=== PATIENT | male | born 1955 | race Caucasian/White ===

== ENCOUNTER → 2019-08-22 09:45 | Outpatient (CLI) | payer BC, SELFPAY ==
--- NOTE | ~2019-08-22 | CT_ITS ---
EXAMINATION: CT chest wo con DATE: 08/22/2019 10:08 INDICATION: Lung cancer screening. Personal history of tobacco dependence. TECHNIQUE: Computed tomography (CT) of the chest was performed without intravenous contrast. The dose -length product was 364.86 mGy-cm. Automated exposure control and iterative reconstruction technique were employed. COMPARISON: CT dated 02/20/2017 FINDINGS: Heart size normal. There is atherosclerosis of the aorta and coronary arteries. Heart size is normal. No significant pleural or pericardial effusion. There is a hypodense right renal mass lauren uring 2.8 cm, likely a cyst. No significant pleural or pericardial effusion. No thoracic lymphadenopa thy. Mild emphysema. There are calcified mediastinal and right hilar lymph nodes as well as parenchym al nodules, consistent with chronic granulomatous disease. No endobronchial lesions. No pneumothorax. No thoracic spondylosis. No osteolytic or osteoblastic lesions are seen. IMPRESSION: 1. Lung-RADS category 1: Negative. Continue annual screening with noncontrast low-dose chest CT in 12 months. Reviewed, dictated and finalized at location A. DEVELOPER IMPRESSION: 1. Lung-RADS category 1: Negative. Continue annual screening with noncontrast l ow-dose chest CT in 12 months.
== END ==
PROVIDERS: PCP Family Medicine; Visit Provider Physician Assistant
DX: Z09 Encounter for follow-up examination after completed treatment for conditions other than malignant neoplasm (principal); Z12.2 Encounter for screening for malignant neoplasm of respiratory organs; Z87.891 Personal history of nicotine dependence
CPT/HCPCS: 71250

== ENCOUNTER → 2020-10-26 09:05 | Outpatient (CLI) | payer BC, SELFPAY ==
--- NOTE | ~2020-10-26 | CT_ITS ---
EXAMINATION: CT lung screening DATE: 10/26/2020 09:23 INDICATION: Z87.891 - Personal history of nicotine dependence TECHNIQUE: Computed tomography (CT) of the chest was performed without intravenous contrast. Addition al 3D reconstructions utilizing coronal maximum intensity projection (MIP) were performed. Automated exposure control and iterative reconstruction technique were employed. The dose-length product was 26 5.82 mGy-cm. COMPARISON: 08/22/2019 FINDINGS: Calcite nodules in the right middle lobe along with calcified right hilar and mediastinal lymph nodes consistent with old granulomatous disease. No pneumonia or other suspicious pulmonary nodules, pulmo nary edema or pleural effusion. Heart size is normal. Atherosclerotic coronary artery calcifications. No pericardial effusion. Thoracic aorta is normal in caliber. No pathologically enlarged thoracic ly mphadenopathy. Calcified gallstones at the dependent neck of the gallbladder. Moderate thoracic spond ylosis with bridging osteophytes at multiple levels consistent with diffuse idiopathic skeletal hyper ostosis (DISH). IMPRESSION: 1. Lung-RADS category 1: Negative. Continue annual screening with noncontrast low-dose chest CT in 12 months. Reviewed, dictated and finalized at location B. IMPRESSION: 1. Lung-RADS category 1: Negative. Continue annual screening with noncontrast l ow-dose chest CT in 12 months.
== END ==
PROVIDERS: PCP Family Medicine; Visit Provider Physician Assistant
DX: Z12.2 Encounter for screening for malignant neoplasm of respiratory organs (principal); Z87.891 Personal history of nicotine dependence
CPT/HCPCS: 71271

== ENCOUNTER 2022-03-31 09:45 | Outpatient (CLI) | payer BC, SELFPAY ==
--- NOTE | 2022-03-31 10:13 | EST_ITS ---
Patient Info Name: Poncho Marcum Age: 66 years : 1955 Gender: Male Ht: 72 in Wt: 280 lbs BSA: 2.59 m2 Exam Date: 03/31/2022 10:25 AM Exam Location: [facility] Patient Status: Outpatient Admit Date: 03/31/2022 Staff Ordering Physician: Vignesh Rainey PA-C Motorcoach Driver: Logan Mosher RDCS, RT Attending Provider: Vignesh Rainey PA-C Exam Type: CA stress echo Study Info Indications R07.9 - Chest pain, unspecified Treadmill exercise stress echocardiogram is performed. Summary 1. 1. Negative Nash exercise stress test for ischemic ST changes by ECG criteria. 2. 2. Mildly reduced functional capacity, achieving 9 METs of workload. 3. 3. Appropriate HR response to exercise. 4. 4. Appropriate HR recovery at 1 minute post exercise. 5. 5. Negative stress echocardiogram for ischemia by wall motion analysis. 6. 6. Patient informed of the above results. Stress Echo Findings Left Ventricle Appropriate increase in LV endocardial thickening with systole. Appropriate augmentation of contractility with systole. No wall motion abnormality. Left Ventricle Normal LV systolic function, no wall motion abnormality. Protocol: [facility] Stress ECG Details Stage: REST Duration (min): 2 min : 12 sec Speed (mph): 0.0 Grade (%): 0 HR (bpm): 67 SBP (mmHg): 117 DBP (mmHg): 78 METS: --- Stage: REST Duration (min): 23 min : 38 sec Speed (mph): 0.0 Grade (%): 0 HR (bpm): 70 SBP (mmHg): 117 DBP (mmHg): 78 METS: --- Stage: STAGE 1 Duration (min): 1 min : 0 sec Speed (mph): 1.7 Grade (%): 10 HR (bpm): 94 SBP (mmHg): 117 DBP (mmHg): 78 METS: --- Stage: STAGE 1 Duration (min): 2 min : 0 sec Speed (mph): 1.7 Grade (%): 10 HR (bpm): 105 SBP (mmHg): 117 DBP (mmHg): 78 METS: --- Stage: STAGE 1 Duration (min): 3 min : 0 sec Speed (mph): 1.7 Grade (%): 10 HR (bpm): 110 SBP (mmHg): 149 DBP (mmHg): 74 METS: --- Stage: STAGE 2 Duration (min): 1 min : 0 sec Speed (mph): 2.5 Grade (%): 12 HR (bpm): 118 SBP (mmHg): 149 DBP (mmHg): 74 METS: --- Stage: STAGE 2 Duration (min): 2 min : 0 sec Speed (mph): 2.5 Grade (%): 12 HR (bpm): 126 SBP (mmHg): 143 DBP (mmHg): 86 METS: --- Stage: STAGE 2 Duration (min): 3 min : 0 sec Speed (mph): 2.5 Grade (%): 12 HR (bpm): 134 SBP (mmHg): 143 DBP (mmHg): 86 METS: --- Stage: STAGE 3 Duration (min): 1 min : 0 sec Speed (mph): 3.4 Grade (%): 14 HR (bpm): 145 SBP (mmHg): 184 DBP (mmHg): 83 METS: --- Stage: STAGE 3 Duration (min): 1 min : 11 sec Speed (mph): 0.0 Grade (%): 0 HR (bpm): 147 SBP (mmHg): 184 DBP (mmHg): 83 METS: --- Stage: RECOVERY Duration (min): 0 min : 48 sec Speed (mph): 0.0 Grade (%): 0 HR (bpm): 135 SBP (mmHg): 184 DBP (mmHg): 83 METS: --- Stage
== END 2022-03-31 09:46 | disposition home or self-care (01) ==
PROVIDERS: PCP Emergency Medicine; Visit Provider Physician Assistant
DX: R07.89 Other chest pain (principal); Z51.81 Encounter for therapeutic drug level monitoring; Z79.84 Long term (current) use of oral hypoglycemic drugs
CPT/HCPCS: 93351

== ENCOUNTER 2022-07-22 09:06 | Outpatient (CLI) | payer MEDICARE, SELFPAY ==
--- NOTE | ~2022-07-22 | US_ITS ---
EXAMINATION: US aorta [facility] DATE: 07/22/2022 09:51 INDICATION: Abdominal aortic aneurysm screening, tobacco use, hypertension, diabetes TECHNIQUE: Grayscale, color Doppler, and pulsed Doppler images of the aorta and common iliac arteries were obtained. COMPARISON: None. FINDINGS: Maximum vascular dimensions are as follows: Proximal aorta: 2.8 cm Mid aorta: 3.1 cm Distal aorta: 2.5 cm Right common iliac artery: 1.4 cm Left common iliac artery: 1.4 cm There is a fusiform infrarenal abdominal aortic aneurysm measuring up to 3.1 cm. IMPRESSION: 1. Fusiform infrarenal abdominal aortic aneurysm measuring up to 3.1 cm. Reviewed, dictated and finalized at location B. PULLING MACHINE TENDER
== END 2022-07-22 09:07 | disposition home or self-care (01) ==
PROVIDERS: PCP Emergency Medicine; Visit Provider Emergency Medicine
DX: F17.210 Nicotine dependence, cigarettes, uncomplicated (principal); I71.43 Infrarenal abdominal aortic aneurysm, without rupture
CPT/HCPCS: 76706

== ENCOUNTER 2023-07-14 07:23 | Outpatient (CLI) | payer MEDICARE, SELFPAY ==
--- NOTE | ~2023-07-14 | US_ITS ---
EXAMINATION: US aorta DATE: 07/14/2023 08:30 INDICATION: Abdominal aortic aneurysm without rupture TECHNIQUE: Grayscale, color Doppler, and pulsed Doppler images of the aorta and common iliac arteries were obtained. COMPARISON: 07/22/2022 FINDINGS: Bowel gas and contents slightly limits the examination. Maximum visualized vascular dimensions are as follows: Proximal aorta: 2.0 cm Mid aorta: 1.9 cm Distal aorta: 1.7 cm Right common iliac artery: 1.3 cm Left common iliac artery: 1.3 cm No sonographically detected abdominal aortic aneurysm. IMPRESSION: 1. No sonographically detected abdominal aortic aneurysm. Given patient's history of prior aneurysm o n ultrasound, consider follow-up with CT. Reviewed, dictated and finalized at location B. L[place]OFT HCM DEVELOPER IMPRESSION: 1. No sonographically detected abdominal aortic aneurysm. Given patient's histo ry of prior aneurysm on ultrasound, consider follow-up with CT.
== END 2023-07-14 07:24 | disposition home or self-care (01) ==
PROVIDERS: PCP Emergency Medicine; Visit Provider Emergency Medicine
DX: I71.40 Abdominal aortic aneurysm, without rupture, unspecified (principal)
CPT/HCPCS: 76775

== ENCOUNTER 2023-07-21 06:53 | Outpatient (CLI) | payer MEDICARE, SELFPAY ==
--- NOTE | ~2023-07-21 | CT_ITS ---
EXAMINATION: CT abdomen w con INDICATION: Possible abdominal aortic aneurysm TECHNIQUE: Computed tomographic images of the abdomen were obtained after the administration of 100 c c of Omnipaque 350 intravenous contrast. The dose-length product (DLP) was 973.95 mGy-cm. Automated e xposure control and iterative reconstruction technique were employed. COMPARISON: Ultrasounds dated 07/14/2023 and 07/22/2022 FINDINGS: There is atelectasis versus scarring in the left lower lobe. There is mild dependent atelec tasis on the right. The heart size is normal. There is calcified coronary artery atherosclerosis. An 8 mm hypoattenuating lesion in the right hepatic lobe likely represents a cyst. The spleen, pancreas, and adrenal glands are unremarkable. Stones are present in the nondistended gallbladder. Cysts of th e kidneys measure up to 4.9 cm on the right. There are no pathologically enlarged abdominal lymph nod es. The abdominal aorta is normal in caliber without aneurysm or dissection. No free intraperitoneal gas or evidence of bowel obstruction. There is severe lumbar spondylosis. IMPRESSION: 1. No aneurysm or dissection of the abdominal aorta. 2. Cholelithiasis without evidence of cholecystitis. Reviewed, dictated and finalized at location B. WICH BOARD CARRIER
== END 2023-07-21 06:54 | disposition home or self-care (01) ==
PROVIDERS: PCP Emergency Medicine; Visit Provider Nurse Practitioner Family
DX: I71.40 Abdominal aortic aneurysm, without rupture, unspecified (principal); K80.20 Calculus of gallbladder without cholecystitis without obstruction
CPT/HCPCS: 74160; Q9967

== ENCOUNTER 2023-10-07 21:46 | Emergency (ER) | payer MEDICARE, SELFPAY ==
[2023-10-07 22:10] VITALS: BP 134/80; PULSE 98; RESP 18; TEMP 37.1; O2SAT 98
[2023-10-07 23:02] LABS: Influenza A QL RT-PCR Positive (Negative); Influenza B QL RT-PCR Negative (Negative); RSV RNA, RT-PCR Negative (Negative); SARS-CoV-2 RNA PCR Negative (Negative)
--- NOTE | 2023-10-07 23:50 | ED.GENADULT ---
HPI - General Adult General Chief complaint: Upper Respiratory Infection Stated complaint: SOB/BODYACHES Time Seen by Provider: 10/07/23 23:43 History of Present Illness HPI narrative: patient is a 68-year-old gentleman who presents emergency department with chief complaint of flu-like symptoms. Patient states about 2 weeks ago he started having some body aches for the last 24-48 hours he started to feel worse has had a cough it has been productive of clear mucus the patient states that he has had some chills and body aches patient reports having no chest pain reports he had some loose stool earlier this morning. Related Data Home Medications Medication Instructions Recorded Confirmed aspirin 81 mg tablet,delayed 81 mg PO DAILY 08/12/19 10/06/23 release (Adult Low Dose Aspirin) multivitamin 1 tablet PO DAILY 08/12/19 10/06/23 omega 0-gyn-dhh-fish oil 1,000 mg 1 cap PO BID 08/12/19 10/06/23 (120 mg-180 mg) capsule (Fish Oil) omeprazole 40 mg capsule,delayed 40 mg PO DAILY 08/12/19 10/06/23 release Allergies Allergy/AdvReac Type Severity Reaction Status Date / Time No Known Allergies Allergy Verified 10/06/23 10:15 Review of Systems Review of Systems: A 10 system review of systems was completed on the patient and is negative except for what is stated in the HPI. Nursing and ancillary documentation was reviewed. [facility] Surgical History Surgical History History of left hip replacement (~2002) History of right hip replacement (~2010) Family History Family History Father Diabetes mellitus Family history of cardiovascular disease Malignant neoplasm of prostate Hypertension Family history of diabetes mellitus in first degree relative Mother Diabetes mellitus Family history of Alzheimer's disease Hypertension Family history of diabetes mellitus in first degree relative Grandparent Family history of glaucoma Family history of cardiovascular disease Other Family history of malignant neoplasm Social History Social History Smoking packs per day: 1 Smoking cigarettes per day: 20.0 Smoking status: Current every day smoker Alcohol intake: current Substance use: never Substance use type: does not use Lack of Transportation: No Lack of Food: Never True Current Housing: I Have Housing Concerned About Future Housing: No Difficulty Paying Gas/Electric Bills: No Difficulty Paying for Meds: No Currently Unemployed: No Education: High School Diploma/GED Difficulty w/ Childcare or Family Care: No Living arrangements: alone Gender identity (if verbalized by the patient): Male Exam Narrative: GENERAL: Well-appearing, well-nourished, and in no acute distress. HEAD: Normocephalic, atraumatic. EYES: PERRLA and EOMI. ENT: Nares clear, no rhinorrhea or epistaxis. Mucous membranes moist. NECK: Supple. CHEST: Clear to auscultation. No respiratory distress. HEART: Regular rate and rhythm. No murmur heard. Normal peripheral pulses. ABDOMEN: Soft, nontender, nondistended, normal active bowel sounds. EXTREMITIES: Normal range of motion. No edema. SKIN: Warm, dry, no rash. NEURO: No focal deficits. Alert and oriented x3. PSYCH: Normal mood and affect. Course Vital Signs Vital signs: Vital Signs Temperature 37.1 C 10/07/23 22:10 Pulse Rate 98 10/07/23 22:10 Respiratory Rate 18 10/07/23 22:10 Blood Pressure 134/80 10/07/23 22:10 Pulse Oximetry 98 10/07/23 22:10 Oxygen Delivery Room Air 10/07/23 22:10 Temperature 37.6 C H 10/07/23 23:51 Pulse Rate 103 H 10/07/23 23:51 Respiratory Rate 18 10/07/23 22:10 Blood Pressure 130/84 10/07/23 23:51 Pulse Oximetry 96 10/07/23 23:51 Oxygen Delivery Room Air 10/07/23 22:10 Medical Dec
[2023-10-07 23:51] VITALS: BP 130/84; PULSE 103; TEMP 37.6; O2SAT 96
[2023-10-08 00:14] VITALS: O2SAT 96
== END 2023-10-08 00:18 | disposition home or self-care (01) ==
LOC: ANHED 10-08 00:05
PROVIDERS: Emergency Provider Emergency Medicine; PCP Emergency Medicine
DX: J10.1 Influenza due to other identified influenza virus with other respiratory manifestations (principal); Z20.822 Contact with and (suspected) exposure to COVID-19; F17.210 Nicotine dependence, cigarettes, uncomplicated; Z96.643 Presence of artificial hip joint, bilateral
CPT/HCPCS: 87637; 99283

== ENCOUNTER 2024-02-12 12:24 | Outpatient (CLI) | payer MEDICARE, SELFPAY ==
--- NOTE | ~2024-02-12 | CT_ITS ---
EXAMINATION: CT lung screening DATE: 02/12/2024 12:54 INDICATION: Personal history of nicotine dependence TECHNIQUE: Computed tomography (CT) of the chest was performed without intravenous contrast. The dose -length product was 450.36 mGy-cm. Automated exposure control and iterative reconstruction technique were employed. COMPARISON: CT dated 10/26/2020 FINDINGS: Heart size normal. No thoracic lymphadenopathy. No significant pleural or pericardial effus ion. There are gallstones. No endobronchial lesions. There is right lower lobe atelectasis/scarring medially. No suspicious pulmonary nodules or masses. N o endobronchial lesions. No pneumothorax. There is moderate thoracic and upper lumbar spondylosis. IMPRESSION: 1. Lung-RADS category 1: Negative. Continue annual screening with noncontrast low-dose chest CT in 12 months. Reviewed, dictated and finalized at location B. IMPRESSION: 1. Lung-RADS category 1: Negative. Continue annual screening with noncontrast l ow-dose chest CT in 12 months.
== END 2024-02-12 12:25 | disposition home or self-care (01) ==
LOC: ANHIMG 12:31
PROVIDERS: PCP Emergency Medicine; Visit Provider Emergency Medicine
DX: Z12.2 Encounter for screening for malignant neoplasm of respiratory organs (principal); Z87.891 Personal history of nicotine dependence
CPT/HCPCS: 71271

== ENCOUNTER 2024-08-30 17:02 | Emergency (ER) | payer MEDICARE, SELFPAY ==
--- NOTE | 2024-08-30 17:04 | ED_ITS ---
HPI - Skin/Abscess/Foreign Bdy General Chief complaint: Extremity Problem,Nontraumatic Stated complaint: rash and swelling lt lower extremity Time Seen by Provider: 08/30/24 17:03 Source: patient Mode of arrival: ambulatory Limitations: no limitations History of Present Illness HPI narrative: Patient is a 69-year-old male that presents with 2 days redness and swelling to left lower extremity. Patient states he got a pedicure on Monday but it is the same pedicure he has got previously. Woke up Monday morning with pain warmth and swelling to posterior portion of left lower leg and ankle. Patient states he is still able to walk normally with no increased pain. Patient also concern for increased discoloration and foot. Denies any numbness or tingling to foot Related Data Home Medications ?Medication ?Instructions ?Recorded ?Confirmed ?Last Taken ?Type aspirin 81 mg tablet,delayed 81 mg PO DAILY 08/12/19 07/05/24 Unknown History release (Adult Low Dose Aspirin) multivitamin 1 tablet PO DAILY 08/12/19 07/05/24 Unknown History omega 9-aer-eok-fish oil 1,000 mg 1 cap PO BID 08/12/19 07/05/24 Unknown History (120 mg-180 mg) capsule (Fish Oil) Allergies Allergy/AdvReac Type Severity Reaction Status Date / Time No Known Allergies Allergy Verified 08/30/24 17:44 Review of Systems Review of Systems: All systems reviewed & are unremarkable except as noted in HPI and below Constitutional: Constitutional: Denies body ache(s), Denies chills, Denies fatigue, Denies fever(s), Denies headache(s), Denies malaise and Denies weakness Eyes: Eyes: Denies blurry vision, Denies irritation and Denies loss of vision ENT: Denies otalgia, Denies headache(s), Denies nasal discharge, Denies sinus pain and Denies sore throat Cardiovascular: Cardiovascular: Denies chest pain, Denies irregular heart rhythm and Denies dyspnea Respiratory: Respiratory: Denies dyspnea Gastrointestinal: Gastrointestinal: Denies abdominal pain, Denies melena, Denies hematochezia, Denies diarrhea, Denies nausea and Denies vomiting Musculoskeletal: Musculoskeletal: Denies back pain, Denies myalgias, Denies arthralgias and Reports other (Leg swelling) Integumentary/Breasts: Skin/Breast: Denies pruritus, Reports erythema, Denies rash and Reports skin swelling Neurologic: Denies headache(s), Denies loss of vision and Denies weakness Psychiatric: Psychiatric: Reports no additional psychiatric complaints Endocrine: Endocrine: Denies fatigue PMFSH Surgical History Surgical History History of right hip replacement (~2010) History of left hip replacement (~2002) Family History Family History Father Diabetes mellitus Family history of cardiovascular disease Malignant neoplasm of prostate Hypertension Family history of diabetes mellitus in first degree relative Mother Diabetes mellitus Family history of Alzheimer's disease Hypertension Family history of diabetes mellitus in first degree relative Grandparent Family history of glaucoma Family history of cardiovascular disease Other Family history of malignant neoplasm Social History Social History Smoking packs per day: 1 Smoking cigarettes per day: 20.0 Smoking status: Current every day smoker Alcohol intake: current Substance use: never Substance use type: does not use Lack of Transportation: No Lack of Food: Never True Current Housing: I Have Housing Concerned About Future Housing: No Difficulty Paying Gas/Electric Bills: No Difficulty Paying for Meds: No Currently Unemployed: No Education: High School Diploma/GED Difficulty w/ Childcare or Family Care: No Living arrangements: alone Gender identity (if verbalized by the patient): Male Comments At time of signature, agree with nursing past medical, surgical, social and family history. There is no relevant family history pertinent to the presenting complaint. Exam Const: General: cooperative, healthy appearing, comfortable, no acute distress and well nourished Nutritional Appearance: well nourished Orientation/consciousness: patient oriented x3 Limitations: no limitations HENMT: Head: normal to inspection, normocephalic and atraumatic Ears: hearing grossly normal bilaterally and external ears normal Face/Nose/Sinus: Normal external nose present, normal facial exam and face symmetric Face and sinus: normal facial exam and face symmetric Mouth: Yes lip normal Eyes: General: appearance normal, both eyes and all related structures Alignment and Position: alignment normal and position normal Periorbital: periorbital findings normal Eyelids: eyelids normal Pupils: Equal, round and reactive pupils present EOM: EOMs intact bilaterally Neck: Neck: normal visual inspection, full ROM and supple Chest: Chest palpation & inspection: normal inspection of the chest Resp: Effort & Inspection: normal respiratory effort and able to speak in complete sentences Auscultation: clear to auscultation bilaterally Cardio: Rate: regular rate Rhythm: regular rhythm Heart sounds: S1 normal heart sound present and S2 normal heart sound present GI: Inspection: normal to inspection Skin: General skin exam: normal color and no rashes or lesions noted Neuro: General: patient oriented x3 and moves all extremities Cranial nerves: Yes Equal, round and reactive pupils present Speech: normal speech Gait exam (Neuro): Normal gait present Extrem: General: normal to inspection, full ROM and no edema Left lower extremity: lower leg Details: erythema Location: of the distal lower leg Location: posteromedial, tenderness Location: of the distal tibia, non-pitting edema and warmth Location: of the distal lower leg, ankle Details: tenderness Location: posteriorly, pitting edema Details: non-pitting and warmth Location: posteromedially; achilles tendon exam normal and foot Details: toes with normal ROM, vascular exam Details: dorsalis pedis pulse present and normal capillary refill, tendon exam active flexion normal of all toes and active extension normal of all toes and other (Purple discoloration more prominent than right); no tenderness Psych: Appearance: grossly normal and well kempt Mental Status: mental status grossly normal Speech and movement: Normal speech and movement present Affect: normal affect Attitude: cooperative Thought process: Normal thought process present Course Course Emergency Course: Patient being transferred to [facility] for further workup and evaluation to rule out DVT versus cellulitis. Portions of this record may have been created with voice recognition software Level of Care: Express Care Visit Vital Signs Vital signs: Vital Signs Temperature 36.6 C 08/30/24 17:22 Pulse Rate 84 08/30/24 17:22 Respiratory Rate 16 08/30/24 17:22 Blood Pressure 134/91 H 08/30/24 17:22 Pulse Oximetry 99 08/30/24 17:22 Temperature 36.6 C 08/30/24 17:22 Pulse Rate 84 08/30/24 17:22 Respiratory Rate 16 08/30/24 17:22 Blood Pressure 134/91 H 08/30/24 17:22 Pulse Oximetry 99 08/30/24 17:22 Reviewed Transfer Transfered to: [facility] rationale: Leg redness, warmth and point tenderness concerning for DVT versus cellulitis Accepting physician: Phyllis GALLEGOS MDM - Skin/Abscess/Foreign Bdy MDM Narrative Medical decision making narrative: Patient being transferred to [facility] Leg redness, warmth and point tenderness concerning for DVT versus cellulitis Differential Diagnosis Differential diagnosis: Likely cellulitis, contact dermatitis and other (DVT) Medical Records Attestation: I reviewed the patient's medical records. Discharge Plan Discharge Clinical Impression: Erythema of lower extremity, Edema of left lower leg Patient Disposition: Acute Care Hospital Condition: Stable Patient Language: Japanese Prescriptions: No Action betamethasone valerate 0.1 % cream 1 applic topical BID PRN (Reason: itching) Qty: 45 0RF atorvastatin 20 mg tablet 20 mg PO DAILY Qty: 90 3RF clonidine HCl 0.2 mg tablet 0.2 mg PO DAILY Qty: 90 3RF irbesartan-hydrochlorothiazide 150-12.5 mg tablet 1 tablet PO DAILY Qty: 90 3RF Ozempic 1 mg/dose (4 mg/3 mL) pen injector 1 mg subcut WEEKLY Qty: 9 1RF valacyclovir [Valtrex] 1 gram tablet 1,000 mg PO TID Qty: 21 1RF Rx Instructions: Take at the earliest sign of break out aspirin [Adult Low Dose Aspirin] 81 mg tablet,delayed release (DR/EC) 81 mg PO DAILY omega 7-zyy-xzs-fish oil [Fish Oil] 1,000 mg (120 mg-180 mg) capsule 1 cap PO BID multivitamin Tablet 1 tablet PO DAILY sildenafil 50 mg tablet See Rx Instructions .ROUTE .COMPLEX Qty: 14 3RF Dose Instruction: TAKE 50 MG BY MOUTH DAILY NEEDED FOR SEXUAL ACTIVITY, TAKE 30 MINUTES TO 4 HOURS BEFORE ACTIVITY Rx Instructions: TAKE 50 MG BY MOUTH DAILY NEEDED FOR SEXUAL ACTIVITY, TAKE 30 MINUTES TO 4 HOURS BEFORE ACTIVITY metformin 500 mg tablet 500 mg PO DAILY Qty: 90 1RF amitriptyline 25 mg tablet See Rx Instructions .ROUTE .COMPLEX Qty: 90 3RF Dose Instruction: TAKE 1 TABLET BY MOUTH DAILY Rx Instructions: TAKE 1 TABLET BY MOUTH DAILY Aimovig Autoinjector 70 mg/mL auto-injector See Rx Instructions .ROUTE .COMPLEX Qty: 3 2RF Dose Instruction: INJECT 1 SYRINGE UNDER THE SKIN ONCE A MONTH IN THE ABDOMEN THIGH OR OUTER AREA OF UPPER ARM Rx Instructions: INJECT 1 SYRINGE UNDER THE SKIN ONCE A MONTH IN THE ABDOMEN THIGH OR OUTER AREA OF UPPER ARM Follow-up/Referrals: Haley Coreas DO [Primary Care Provider] - Time of Disposition: 18:00
[2024-08-30 17:22] VITALS: BP 134/91; PULSE 84; RESP 16; TEMP 36.6; O2SAT 99
== END 2024-08-30 17:52 | disposition short-term general hospital (02) ==
PROVIDERS: Emergency Provider Nurse Practitioner Family; PCP Family Medicine
DX: L53.9 Erythematous condition, unspecified (principal); R60.0 Localized edema; F17.210 Nicotine dependence, cigarettes, uncomplicated; Z96.643 Presence of artificial hip joint, bilateral; Z79.82 Long term (current) use of aspirin
CPT/HCPCS: 99212; G0463

== ENCOUNTER 2024-08-30 18:02 | Emergency (ER) | payer MEDICARE, SELFPAY ==
--- NOTE | ~2024-08-30 | US_ITS ---
EXAMINATION: US venous doppler [facility] DATE: 08/30/2024 18:36 INDICATION: Swelling TECHNIQUE: Grayscale ultrasound images without and with compression and Doppler ultrasound images of the left lower extremity veins were obtained. COMPARISON: None. FINDINGS: The visualized portions of left common femoral vein, profunda (deep) femoral vein, femoral vein, popl iteal vein, peroneal veins, posterior tibial veins, and greater saphenous vein outflow are patent. IMPRESSION: 1. No deep venous thrombosis within the left lower extremity. Reviewed, dictated and finalized at location A. DIE MAKER
--- OUTSIDE RECORDS SUMMARY | 2024-08-30 18:04 | XMS_ITS | Clinical Summary ---
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 Name Role Phone Unavailable Primary Care Provider Unavailabl e Social History Tobacco Use Types Packs/Day Years Used Date Smoking Tobacco: Never Assessed Sex and Gender Information Value Date Recorded Sex Assigned at Not on file Legal Sex Male 12:29 PM CDT Gender Identity Not on file Sexual Orientation Not on file Plan of Treatment Health Maintenance Due Date Last Done Comments DTAP/TDAP/TD VACCINES (1 - Tdap) 1976 COLORECTAL SCREENING 2002 Colorectal Cancer Screening 2002 FIT-DNA Q 3 years 2002 FIT/FOBT Q 1 year 2002 Flex Sig/CT Colonography Q 5 years 2002 PNEUMOCOCCAL VACCINE 65+ YEARS (1 of 1 - PCV) 06/15/20 07 ZOSTER VACCINE (1 of 2) 2007 INFLUENZA VACCINE (#1) 2024 RSV VACCINE (60+ or ) (1 - 1-dose 75+ series) 2032
--- OUTSIDE RECORDS SUMMARY | 2024-08-30 18:04 | XMS_ITS | Clinical Summary ---
Author Organization [facility] Address [facility] [place] [address] Care Team Providers Care Air Analysis Technician Name Role Phone Unavailable Primary Care Provider Unavailabl e Social History Tobacco Use Types Packs/Day Years Used Date Smoking Tobacco: Never Assessed Sex and Gender Information Value Date Recorded Sex Assigned at Not on file Legal Sex Male 8:26 PM CDT Gender Identity Not on file Sexual Orientation Not on file Plan of Treatment Health Maintenance Due Date Last Done Comments Colorectal Cancer Screening Colonoscopy (10 Years) 1957 Hepatitis C 1975 DTaP, Tdap and Td Vaccines ( 1 - Tdap) 1976 Zoster Vaccines (1 of 2) 2007 Pneumococcal Vaccine: 65+ Ye ars (1 of 1 - PCV) 2022 COVID-19 Vaccine (1 - 2023-2 5 season) 2024 Influenza Adult (#1) 2024 RSV Immunization or 60+ Years (1 - 1-dose 75+ series) 2032 Meningococcal B Vaccine Aged Out No l onger eligible based on patient's age to complete this topic Meningococcal Vaccine Aged Out No kim nico eligible based on patient's age to complete this topic RSV Immunizations Under 20 Months Aged Out No longer eligible based on patient's age to complete this topic
--- NOTE | 2024-08-30 18:07 | ED.EXTPRO ---
HPI - Extremity Problem General Chief complaint: Extremity Problem,Nontraumatic <Shell Shaw PA-C - Last Filed: 08/30/24 18:08> Stated complaint: lower leg pain <Shell Shaw PA-C - Last Filed: 08/30/24 18:08> Time Seen by Provider: 08/30/24 18:43 <Shell Shaw PA-C - Last Filed: 08/30/24 18:08> Focused HPI: 69-year-old male presents to the emergency department for left lower extremity edema and discoloration for 2 days. Patient is concerned he may have a blood clot. Reports he had pain just inferior to his calf prior to the onset of redness and swelling. He has no history of DVT or PE. Denies recent surgeries or hospitalizations, long travel, chest pain or shortness of breath, hemoptysis. GENERAL: Well-appearing, well-nourished, and in no acute distress. HEAD: Normocephalic, atraumatic. CHEST: Clear to auscultation. ?No respiratory distress. EXT: pitting edema to the LLE with overlying redness, tenderness just inferior to the gastrocnemius, DP pulse 2 +, sensation intact throughout. Negative Homans HEART: Regular rate and rhythm.? NEURO: ?Alert and oriented x3. Patient screened in triage and initial orders placed.? ?Additional care and disposition to be based upon?diagnostic testing and treatment. <Shell Shaw PA-C - Last Filed: 08/30/24 18:08> History of Present Illness HPI Narrative: Agree with the HPI above and would like to add that patient recently had a pedicure done several days ago and thinks that he could have caught a potential infection from the procedure and bath water. The other leg is not having any symptoms. Denies any history of DVT or PE. No anticoagulation use presently. <Felix Elizabeth MD - Last Filed: 08/30/24 20:37> Related Data Home medications: Home Medications ?Medication ?Instructions ?Recorded ?Confirmed ?Last Taken ?Type aspirin 81 mg tablet,delayed 81 mg PO DAILY 08/12/19 07/05/24 Unknown History release (Adult Low Dose Aspirin) multivitamin 1 tablet PO DAILY 08/12/19 07/05/24 Unknown History omega 3-iwm-tlv-fish oil 1,000 mg 1 cap PO BID 08/12/19 07/05/24 Unknown History (120 mg-180 mg) capsule (Fish Oil) <Shell Shaw PA-C - Last Filed: 08/30/24 18:08> Allergies/Adverse reactions: Allergies Allergy/AdvReac Type Severity Reaction Status Date / Time No Known Allergies Allergy Verified 08/30/24 18:41 <Shell Shaw PA-C - Last Filed: 08/30/24 18:08> Review of Systems Review of Systems: As reviewed above in HPI <Felix Elizabeth MD - Last Filed: 08/30/24 20:37> [facility] Surgical History Surgical History: Surgical History History of right hip replacement (~2010) History of left hip replacement (~2002) <Shell Shaw PA-C - Last Filed: 08/30/24 18:08> Family History Family History: Family History Father Diabetes mellitus Family history of cardiovascular disease Malignant neoplasm of prostate Hypertension Family history of diabetes mellitus in first degree relative Mother Diabetes mellitus Family history of Alzheimer's disease Hypertension Family history of diabetes mellitus in first degree relative Grandparent Family history of glaucoma Family history of cardiovascular disease Other Family history of malignant neoplasm <Shell Shaw PA-C - Last Filed: 08/30/24 18:08> Social History Social History: Social History Smoking packs per day: 1 Smoking cigarettes per day: 20.0 Smoking status: Current every day smoker Alcohol intake: current Substance use: never Substance use type: does not use Lack of Transportation: No Lack of Food: Never True Current Housing: I Have Housing Concerned About Future Housing: No Difficulty Paying Gas/Electric Bills: No Difficulty Paying for Meds: No Currently Unemployed: No Education: High School Diploma/GED Difficulty w/ Childcare or Family Care: No Living arrangements: alone Gender identity (if verbalized by the patient): Male <GANGA Harrington Last Filed: 08/30/24 18:08> Exam Narrative: GENERAL: Well-appearing, well-nourished, and in no acute distress. HEAD: Normocephalic, atraumatic. CHEST: Clear to auscultation. ?No respiratory distress. EXT: pitting edema to the LLE with overlying redness, tenderness just inferior to the gastrocnemius, DP pulse 2 +, sensation intact throughout. Negative Homans HEART: Regular rate and rhythm.? NEURO: ?Alert and oriented x3. <Felix Elizabeth MD - Last Filed: 08/30/24 20:37> Course Vital Signs Vital signs: Vital Signs Temperature 36.3 C L 08/30/24 18:08 Pulse Rate 88 08/30/24 18:08 Respiratory Rate 17 08/30/24 18:08 Blood Pressure 151/94 H 08/30/24 18:08 Pulse Oximetry 100 08/30/24 18:08 Oxygen Delivery Room Air 08/30/24 18:08 Temperature 36.3 C L 08/30/24 18:08 Pulse Rate 88 08/30/24 18:08 Respiratory Rate 17 08/30/24 18:08 Blood Pressure 151/94 H 08/30/24 18:08 Pulse Oximetry 100 08/30/24 18:08 Oxygen Delivery Room Air 08/30/24 18:08 <GANGA Harrington Last Filed: 08/30/24 18:08> Vital Signs Temperature 36.3 C L 08/30/24 18:08 Pulse Rate 88 08/30/24 18:08 Respiratory Rate 17 08/30/24 18:08 Blood Pressure 151/94 H 08/30/24 18:08 Pulse Oximetry 100 08/30/24 18:08 Oxygen Delivery Room Air 08/30/24 18:08 Temperature 36.3 C L 08/30/24 18:08 Pulse Rate 88 08/30/24 18:08 Respiratory Rate 17 08/30/24 18:08 Blood Pressure 151/94 H 08/30/24 18:08 Pulse Oximetry 100 08/30/24 18:08 Oxygen Delivery Room Air 08/30/24 18:08 <Felix Elizabeth MD - Last Filed: 08/30/24 20:37> MDM - Extremity (Nontraumatic) [facility] Narrative Medical decision making narrative: 69-year-old male presenting with left lower extremity swelling and redness concerns for potential blood clot versus cellulitis. Recently underwent hepatic here and had what appears to be soft tissue irritation and cellulitic skin changes that occurred few days after this. No history of DVT, not present on any blood thinner medications. DVT ultrasound was ordered to rule out thrombotic event. This was negative for any acute DVT he has patent vessels. We will treat him symptomatically for cellulitis likely secondary to the recent pedicure and treatment with possible infiltration of Pseudomonas or other bacterial infection causing cellulitis. He was given a dose of Bactrim here and will be sent home with a 7 day course of this. Patient verbalized understanding these instructions for return precautions and completion of his antibiotics and was safe for discharge at this time. <Felix Elizabeth MD - Last Filed: 08/30/24 20:37> Discharge Plan Discharge Clinical Impression: Cellulitis of left lower extremity <Shell Shaw PA-C - Last Filed: 08/30/24 18:08> Patient Disposition: Home, Self-Care <Shell Shaw PA-C - Last Filed: 08/30/24 18:08> Condition: Stable <Shell Shaw PA-C - Last Filed: 08/30/24 18:08> Instructions: Antibiotic Form, Cellulitis (ED), Folliculitis (ED) <Shell Shaw PA-C - Last Filed: 08/30/24 18:08> Additional Instructions: You have no blood clot and your symptoms are likely secondary to a bacterial infection of the skin and soft tissues. We will treat this with antibiotics for next week. He can take Tylenol ibuprofen for any pain or swelling. Follow-up with regular doctor, return with any worsening concerns. <Shell Shaw PA-C - Last Filed: 08/30/24 18:08> Patient Language: Latvian <Shell Shaw PA-C - Last Filed: 08/30/24 18:08> Prescriptions: New sulfamethoxazole-trimethoprim [Bactrim DS] 800-160 mg tablet 1 tablet PO Q12H Qty: 14 0RF No Action betamethasone valerate 0.1 % cream 1 applic topical BID PRN (Reason: itching) Qty: 45 0RF atorvastatin 20 mg tablet 20 mg PO DAILY Qty: 90 3RF clonidine HCl 0.2 mg tablet 0.2 mg PO DAILY Qty: 90 3RF irbesartan-hydrochlorothiazide 150-12.5 mg tablet 1 tablet PO DAILY Qty: 90 3RF Ozempic 1 mg/dose (4 mg/3 mL) pen injector 1 mg subcut WEEKLY Qty: 9 1RF valacyclovir [Valtrex] 1 gram tablet 1,000 mg PO TID Qty: 21 1RF Rx Instructions: Take at the earliest sign of break out aspirin [Adult Low Dose Aspirin] 81 mg tablet,delayed release (DR/EC) 81 mg PO DAILY omega 2-com-jux-fish oil [Fish Oil] 1,000 mg (120 mg-180 mg) capsule 1 cap PO BID multivitamin Tablet 1 tablet PO DAILY sildenafil 50 mg tablet See Rx Instructions .ROUTE .COMPLEX Qty: 14 3RF Dose Instruction: TAKE 50 MG BY MOUTH DAILY NEEDED FOR SEXUAL ACTIVITY, TAKE 30 MINUTES TO 4 HOURS BEFORE ACTIVITY Rx Instructions: TAKE 50 MG BY MOUTH DAILY NEEDED FOR SEXUAL ACTIVITY, TAKE 30 MINUTES TO 4 HOURS BEFORE ACTIVITY metformin 500 mg tablet 500 mg PO DAILY Qty: 90 1RF amitriptyline 25 mg tablet See Rx Instructions .ROUTE .COMPLEX Qty: 90 3RF Dose Instruction: TAKE 1 TABLET BY MOUTH DAILY Rx Instructions: TAKE 1 TABLET BY MOUTH DAILY Aimovig Autoinjector 70 mg/mL auto-injector See Rx Instructions .ROUTE .COMPLEX Qty: 3 2RF Dose Instruction: INJECT 1 SYRINGE UNDER THE SKIN ONCE A MONTH IN THE ABDOMEN THIGH OR OUTER AREA OF UPPER ARM Rx Instructions: INJECT 1 SYRINGE UNDER THE SKIN ONCE A MONTH IN THE ABDOMEN THIGH OR OUTER AREA OF UPPER ARM <Shell Shaw PA-C - Last Filed: 08/30/24 18:08> Follow-up/Referrals: Haley Coreas DO [Primary Care Provider] - <Shell Shaw PA-C - Last Filed: 08/30/24 18:08> Time of Disposition: 20:36 <Shell Shaw PA-C - Last Filed: 08/30/24 18:08> 20:36 <Felix Elizabeth MD - Last Filed: 08/30/24 20:37>
[2024-08-30 18:08] VITALS: BP 151/94; PULSE 88; RESP 17; TEMP 36.3; O2SAT 100
--- OUTSIDE RECORDS SUMMARY | 2024-08-30 18:50 | XMS_ITS | Clinical Summary ---
Author Organization [facility] Address [address] [place] [address] Phone Care Team Providers Care Mold Hoister Name Role Phone Unavailable Primary Care Provider [...]
--- OUTSIDE RECORDS SUMMARY | 2024-08-30 18:50 | XMS_ITS | Clinical Summary ---
Author Organization [facility] Address [facility] [place] [address] Care Team Providers Care Tester Electronic Scale Name Role Phone Unavailable Primary Care Provider [...]
[2024-08-30] MEDS: SULFAMETHOXAZOLE/TRIMETHOPRIM 800/160 MG DS TABLET 1 TAB PO (20:47)
[2024-08-30 20:50] VITALS: BP 149/89; PULSE 82; RESP 17; O2SAT 99
== END 2024-08-30 20:51 | disposition home or self-care (01) ==
PROVIDERS: Emergency Provider Student in an Organized Health Care Education/Training Program; PCP Family Medicine
DX: L03.116 Cellulitis of left lower limb (principal); F17.210 Nicotine dependence, cigarettes, uncomplicated; Z96.643 Presence of artificial hip joint, bilateral; Z79.899 Other long term (current) drug therapy; Z79.85 Long-term (current) use of injectable non-insulin antidiabetic drugs; Z79.82 Long term (current) use of aspirin; Z79.84 Long term (current) use of oral hypoglycemic drugs
CPT/HCPCS: 93971; 99284; A9270

== ENCOUNTER 2025-02-24 12:23 | Outpatient (CLI) | payer MEDICARE, SELFPAY ==
--- NOTE | ~2025-02-24 | CT_ITS ---
CT Scan of the Chest without Contrast: Clinical Indication: Lung cancer screening, nicotine dependence Technique: Contiguous sections were acquired throughout the chest without intravenous contrast. Dose reduction technique was used on this scan by utilizing automated exposure control and iterative recon struction technique. The dose-length product (DLP) was 257.19 mGy-cm. COMPARISON: 02/12/2024 Findings: There is no evidence of any significant mediastinal, hilar or axillary lymphadenopathy. The mediastin al soft tissues appear normal. There is no evidence of pleural or pericardial effusion. The lungs are clear. No pulmonary nodules or infiltrates are noted. Images through the upper abdomen reveal no abnormalities. Impression: Lung RADS 1: Negative. 12 month follow-up screening CT advised. Reviewed, dictated and finalized at location . Impression: Lung RADS 1: Negative. 12 month follow-up screening CT advised.
--- OUTSIDE RECORDS SUMMARY | 2025-02-24 12:26 | XMS_ITS | Clinical Summary ---
Author Organization [facility] Address [address] [place] [address] Phone Care Team Providers Care Leather Patcher Name Role Phone Unavailable Primary Care Provider [...] Colonography Q 5 years 2002 PNEUMOCOCCAL VACCINE 50+ YEARS (1 of 1 - PCV) 06/15/20 07 ZOSTER VACCINE (1 of 2) 2007 INFLUENZA VACCINE (#1) 2025 RSV VACCINE (60+ or ) (1 - 1-dose 75+ series) 2032
--- OUTSIDE RECORDS SUMMARY | 2025-02-24 12:26 | XMS_ITS | Clinical Summary ---
Author Organization [facility] Address [facility] [place] [address] Care Team Providers Care Nuclear Security Officer Name Role Phone Unavailable Primary Care Provider [...] Td Vaccines ( 1 - Tdap) 1976 Pneumococcal Vaccine: 50+ Ye ars (1 of 1 - PCV) 2007 Zoster Vaccines (1 of 2) 2007 COVID-19 Vaccine ( - 2023-2 5 season) 2024 RSV Immunization or 60+ Years (1 [...]
== END 2025-02-24 12:24 | disposition home or self-care (01) ==
PROVIDERS: PCP Family Medicine; Visit Provider Family Medicine
DX: Z12.2 Encounter for screening for malignant neoplasm of respiratory organs (principal); Z87.891 Personal history of nicotine dependence
CPT/HCPCS: 71271